=== PATIENT | male | born 1980 | race Caucasian/White ===

== ENCOUNTER 2018-03-02 17:46 | Emergency (ER) | payer OTHER ==
[2018-03-02 17:50] VITALS: BP 132/95; TEMP 98.1; BMI 22.8
[2018-03-02] MEDS ORDERED: MORPHINE 4 MG/ML SYRINGE IM STA (18:24)
[2018-03-02] MEDS ORDERED: PHENERGAN 25 MG/ML VIAL IM STA (18:25)
[2018-03-02] MEDS ORDERED: TORADOL IM STA (18:25)
--- NOTE | 2018-03-02 19:37 | CT ---
EXAM: CT scan thorax without contrast HISTORY: Trauma chest wall injury COMPARISON: None. FINDINGS: Contiguous axial images obtained through the thorax without contrast utilizing 5-mm collim ation. Sagittal and coronal reconstructions were imaged and reviewed.. The thoracic inlet is unrema rkable. There are subcentimeter pretracheal lymph nodes. The heart is normal in size without perica rdial effusion. The lungs are clear bilaterally. Subpleural bullous changes noted at the right apex . IMPRESSION: No acute intrathoracic findings.
--- NOTE | 2018-03-02 19:54 | ED.PDOC ---
General ED Provider: Dr. IDALMIS LIVINGSTON-ER Chief Complaint: Chest Wall Injury/Pain Stated Complaint: a car door hit my chest Time Seen by Physician: 19:53 Mode of Arrival: Walk-In Information Source: Patient Exam Limitations: No limitations Primary Care Provider: MALAIKA GAYTAN Nursing and Triage Documentation Reviewed and Agree: Yes Reviewed sepsis parameters & appropriate labs ordered?: Yes System Inflammatory Response Syndrome: Not Applicable Sepsis Protocol: For patient's 13 years and over: Temp is 96.8 and below OR 101 and greater Pulse >90 BPM Resp >20/minute Acutely Altered Mental Status Are patient's symptoms suggestive of a new infection, such as: -Pneumonia -Skin, Soft Tissue -Endocarditis -UTI -Bone, Joint Infection -Implantable Device -Acute Abdominal Infection -Wound Infection -Meningitis -Blood Stream Catheter Infection -Unknown Trauma/Injury Complaint Exam - Truncal Trauma Complaint/Exam Location of Pain: Reports: Right, Anterior, Chest Onset: today Symptoms Are: Still present Onset of Pain: Reports: Immediate Initial Severity: Mild Current Severity: Moderate Mechanism: Reports: Blunt trauma Aggravating: Reports: Movement, Deep breathing, Cough Alleviating: Reports: Shallow breathing Associated Signs and Symptoms: Reports: Chest pain. Denies: Abdominal pain, Nausea, Vomiting Immobilization Removed Post Exam: No Vertebral Tenderness Present: No Vertebral Deformity Present: No Trachial Deviation Present: No JVD Present: No Crepitus Present: No Diminished Breath Sounds: No Reproducible Pain at: right chest wall Muffled Heart Sounds Present: No Paradoxical Chest Wall Movement Present: No Abdominal Guarding Present: No Abdominal Rigidity Present: No Referred Shoulder Pain (Kehr's Sign) Present: No Skin Findings: Present: Tenderness Differential Diagnoses: Chest Wall Contusion Review of Systems - Review Of Systems Constitutional: Reports: No symptoms Eyes: Reports: No symptoms Ears, Nose, Mouth, Throat: Reports: No symptoms Respiratory: Reports: No symptoms Cardiac: Reports: Chest pain GI: Reports: No symptoms : Reports: No symptoms Musculoskeletal: Reports: No symptoms Skin: Reports: No symptoms Neurological: Reports: No symptoms Endocrine: Reports: No symptoms Hematologic/Lymphatic: Reports: No symptoms All Other Systems: Reviewed and Negative Past Medical History - Past Medical History Previously Healthy: Yes Endocrine: Reports: None Cardiovascular: Reports: None Respiratory: Reports: None Hematological: Reports: None Gastrointestinal: Reports: None Genitourinary: Reports: None Neuro/Psych: Reports: Migraine Musculoskeletal: Reports: None Cancer: Reports: None - Surgical History General Surgical History: Reports: Other (abdoninal sx), Unknown - Family History Family History: Reports: Unknown - Social History Smoking Status: Current every day smoker, Heavy tobacco smoker Hx Substance Use: No Alcohol Screening: None Lives: With family Physical Exam - Physical Exam Appearance: Well-appearing, No pain distress, Well-nourished Pain Distress: Moderate Eyes: PARKER, EOMI, Conjunctiva clear ENT: Ears normal, Nose normal, Oropharynx normal Neck: Supple Respiratory: Airway patent, Breath sounds clear, Breath sounds equal, Respirations nonlabored Cardiovascular: RRR, Pulses normal, No rub, No murmur GI/: Soft, Nontender, No masses, Bowel sounds normal, No Organomegaly Musculoskeletal: Normal strength Skin: Warm, Dry, Normal color Neurological: Sensation intact, Motor intact, Reflexes intact, Cranial nerves intact, Alert, Oriented Psychiatric: Affect appropriate, Mood appropriate Interpretation - Radiology Interpretation Radiology Interpretation By: Radiologist Radiology Results: Negative Exam Interpreted: CT Scan Critical Care Note - Critical Care Note Total Time (mins): 0 Course - Course Orders, Labs, Meds: Orders Category Date Time Status Ketorolac Tromethamine [Toradol] MEDS 03/02/18 18:25 Discontinued 60 mg IM ONCE STA Morphine Sulfate [Morphine 4 mg/ml Syringe] MEDS 03/02/18 18:24 Discontinued 4 mg IM ONCE STA Promethazine HCl [Phenergan 25 mg/ml Vial] MEDS 03/02/18 18:25 Discontinued 25 mg IM ONCE STA CT CHEST W/O CONTRAST Stat RADS 03/02/18 18:24 Completed Medications Discontinued Medications Generic Name Dose Route Start Last Admin Trade Name Freq PRN Reason Stop Dose Admin Ketorolac Tromethamine 60 mg 03/02/18 18:25 03/02/18 18:42 Toradol IM 03/02/18 18:26 60 mg ONCE STA Administration Morphine Sulfate 4 mg 03/02/18 18:24 03/02/18 18:41 Morphine 4 Mg/Ml Syringe IM 03/02/18 18:25 4 mg ONCE STA Administration Promethazine HCl 25 mg 03/02/18 18:25 03/02/18 18:41 Phenergan 25 Mg/Ml Vial IM 03/02/18 18:26 25 mg ONCE STA Administration Vital Signs: Temp Pulse Resp BP Pulse Ox 03/02/18 17:46 98.1 F 84 20 132/95 H 97 Departure - Departure Time of Disposition: 19:56 Disposition: HOME SELF-CARE Discharge Problem: Chest wall pain Instructions: Chest Wall Pain (ED) Condition: Good Pt referred to PMD for follow-up: No IPMP verified?: No Additional Instructions: norco 7.5mg q 4hrs prn pain #12--f/u with pcp Allergies/Adverse Reactions: Allergies Penicillins Adverse Reaction (Verified 03/02/18 17:50) SWELLING/RASH Home Medications: Ambulatory Orders Clonazepam [Klonopin] 0.5 mg PO BID 03/02/18 Levothyroxine Sodium [Synthroid] 100 mcg PO QDAC 03/02/18 Venlafaxine HCl [Effexor Xr] 37.5 mg PO DAILY 03/02/18 Disposition Discussed With: Patient
== END 2018-03-02 20:00 | disposition home or self-care (01) ==
LOC: ED 17:46
DX: R07.89 Other chest pain (principal); W22.8XXA Striking against or struck by other objects, initial encounter; F17.210 Nicotine dependence, cigarettes, uncomplicated
CPT/HCPCS: 96372; 99282

== ENCOUNTER 2018-05-24 10:00 | Emergency (ER) | payer OTHER ==
[2018-05-24 10:00] VITALS: BMI 22.8
[2018-05-24 10:03] VITALS: BP 147/92; TEMP 96.9
--- NOTE | 2018-05-24 10:37 | ED.PDOC ---
General ED Provider: Dr. CHELE MEDINA Chief Complaint: Bite Stated Complaint: BITE RIGHT FOOT Time Seen by Physician: 10:00 (SEE PHOTOS) Mode of Arrival: Walk-In Information Source: Patient Exam Limitations: No limitations Primary Care Provider: MALAIKA GAYTAN Referred to ED by: Other (PT THINKS IT IS RELATED TO AN INSECT BITE BUT ASHER NOT RECALL A BITE ) Nursing and Triage Documentation Reviewed and Agree: Yes Does patient meet sepsis criteria?: Yes If yes, has appropriate treatment been initiated?: No System Inflammatory Response Syndrome: Not Applicable Sepsis Protocol: For patient's 13 years and over: Temp is 96.8 and below OR 101 and greater Pulse >90 BPM Resp >20/minute Acutely Altered Mental Status Are patient's symptoms suggestive of a new infection, such as: -Pneumonia -Skin, Soft Tissue -Endocarditis -UTI -Bone, Joint Infection -Implantable Device -Acute Abdominal Infection -Wound Infection -Meningitis -Blood Stream Catheter Infection -Unknown Skin Complaint Exam - Skin/Soft Tissue Complaint/Exam Onset/Duration: 1 DAY Symptoms Are: Still present Timing: Constant Initial Severity: Mild Current Severity: Mild Character: Reports: Redness Aggravating: Reports: None Alleviating: Reports: None Associated Signs and Symptoms: Denies: Fever, Chills, Itching, Drainage, Bruising, Tenderness, Red streaks (SEE PHOTOS), Joint swelling Related Surgical History: Reports: None Recent Exposure to Others w/Similar Symptoms: No Skin Findings: Present: Erythema Joint Tenderness Present: No Differential Diagnoses: Cellulitis Review of Systems - Review Of Systems Constitutional: Reports: No symptoms Eyes: Reports: No symptoms Ears, Nose, Mouth, Throat: Reports: No symptoms Respiratory: Reports: No symptoms Cardiac: Reports: No symptoms GI: Reports: No symptoms : Reports: No symptoms Musculoskeletal: Reports: No symptoms Skin: Reports: Other (SEE PHOTOS) Neurological: Reports: No symptoms Endocrine: Reports: No symptoms Hematologic/Lymphatic: Reports: No symptoms All Other Systems: Reviewed and Negative Past Medical History - Past Medical History Previously Healthy: Yes Endocrine: Reports: None Cardiovascular: Reports: None Respiratory: Reports: None Hematological: Reports: None Gastrointestinal: Reports: None Genitourinary: Reports: None Neuro/Psych: Reports: Migraine Musculoskeletal: Reports: None Cancer: Reports: None - Surgical History General Surgical History: Reports: Other (abdoninal sx), Unknown - Family History Family History: Reports: Unknown - Social History Smoking Status: Current every day smoker, Heavy tobacco smoker Hx Substance Use: No Alcohol Screening: None Physical Exam - Physical Exam Appearance: Well-appearing, No pain distress, Well-nourished Eyes: PARKER, EOMI, Conjunctiva clear ENT: Ears normal, Nose normal, Oropharynx normal Respiratory: Airway patent, Breath sounds clear, Breath sounds equal, Respirations nonlabored Cardiovascular: RRR, Pulses normal, No rub, No murmur GI/: Soft, Nontender, No masses, Bowel sounds normal, No Organomegaly Musculoskeletal: Normal strength, ROM intact, No edema, No calf tenderness Skin: Warm, Dry, Normal color Neurological: Sensation intact, Motor intact, Reflexes intact, Cranial nerves intact, Alert, Oriented Psychiatric: Affect appropriate, Mood appropriate Critical Care Note - Critical Care Note Total Time (mins): 0 Course - Course Vital Signs: Temp Pulse Resp BP Pulse Ox 05/24/18 10:01 96.9 F L 92 H 16 147/92 H 96 Departure - Departure Time of Disposition: 10:37 Disposition: HOME SELF-CARE Discharge Problem: Cellulitis of foot Instructions: Cellulitis (ED) Condition: Good Pt referred to PMD for follow-up: Yes IPMP verified?: No Additional Instructions: Please call your Family Physician as soon as possible to schedule a follow-up appointment. Allergies/Adverse Reactions: Allergies Penicillins Adverse Reaction (Verified 05/24/18 10:03) SWELLING/RASH Home Medications: Ambulatory Orders Clonazepam [Klonopin] 0.5 mg PO BID 03/02/18 Levothyroxine Sodium [Synthroid] 100 mcg PO QDAC 03/02/18 Venlafaxine HCl [Effexor Xr] 37.5 mg PO DAILY 03/02/18 Sulfamethoxazole/Trimethoprim [Bactrim Ds 800/160 mg] 1 tab PO Q12HR #14 tablet 05/24/18 Disposition Discussed With: Patient
== END 2018-05-24 10:47 | disposition home or self-care (01) ==
LOC: ED 10:00
DX: S90.871A Other superficial bite of right foot, initial encounter (principal); L03.115 Cellulitis of right lower limb
CPT/HCPCS: 99282